=== PATIENT | female | born 1985 | race Caucasian/White ===

== ENCOUNTER 2017-10-21 07:33 | Emergency (ER) | payer SELFPAY ==
[~2017-10-21] VITALS: Ht 162.6 cm; Wt 100.0 kg
[2017-10-21 07:37] VITALS: Ht 162.6 cm; Wt 100.0 kg
[2017-10-21] MEDS ORDERED: DOXYCYCLINE HY100 M2 PO (08:15)
[2017-10-21 08:27] VITALS: BP 128/078
== END 2017-10-21 08:28 | disposition home or self-care (01) ==
LOC: D.ER 07:33
DX: S80.861A Insect bite (nonvenomous), right lower leg, initial encounter (principal); W57.XXXA Bitten or stung by nonvenomous insect and other nonvenomous arthropods, initial encounter; Y93.89 Activity, other specified; Y92.019 Unspecified place in single-family (private) house as the place of occurrence of the external cause; L03.115 Cellulitis of right lower limb; F17.200 Nicotine dependence, unspecified, uncomplicated

== ENCOUNTER 2018-03-07 18:38 | Emergency (ER) | payer SELFPAY ==
[~2018-03-07] VITALS: Ht 162.6 cm; Wt 87.3 kg
[~2018-03-07 18:38] MED LIST: DOXYCYCLINE HY100 M2 PO
[2018-03-07 18:44] VITALS: Ht 162.6 cm; Wt 87.3 kg
[2018-03-07] MEDS ORDERED: BACTRIM DS1 TAB PO (18:45)
[2018-03-07] MEDS ORDERED: CLEOCIN HCL300 MG PO (19:55)
[2018-03-07 20:38] VITALS: BP 116/81
== END 2018-03-07 20:38 | disposition home or self-care (01) ==
LOC: D.ER 18:38
DX: L02.415 Cutaneous abscess of right lower limb (principal); Z48.00 Encounter for change or removal of nonsurgical wound dressing; F17.200 Nicotine dependence, unspecified, uncomplicated

== ENCOUNTER 2018-10-02 10:41 | Emergency (ER) | payer MEDICAID ==
[~2018-10-02 10:41] MED LIST changes: +BACTRIM DS1 TAB PO; +CLEOCIN HCL300 MG PO
[2018-10-02 10:50] VITALS: Ht 162.6 cm
[2018-10-02 11:21] LABS: BASOPHILS 0.1 % (0-2); EOSINOPHILS 2.2 % (0-7); HEMOGLOBIN 15.5 g/dL (12-16); IMMATURE GRANULOCYTES 0.2 % (0-5); LYMPHOCYTES 16.3 % (15-50); MCH 32.6 pg (26.0-34.0); MCHC 35.2 g/dL (31.0-37.0); MCV 92.6 fL (80.0-100.0); MEAN PLATELET VOLUME 10.1 fL (7.4-10.4); MONOCYTES 4.7 % (2-11); NEUTROPHILS 76.5 % (40-80); PLATELET COUNT 244 10x3/uL (130-400); RBC 4.75 10x6/uL (4.00-5.40); RDW 13.4 % (11.5-14.5); WBC 13.9 10x3/uL (4.8-10.8)
[2018-10-02 11:44] LABS: ALBUMIN 3.3 g/dL (3.4-5.0); ANION GAP 8.7 mmol/L (8-16); BILIRUBIN - TOTAL 0.51 mg/dL (0.2-1.3); CALCIUM 9.1 mg/dL (8.5-10.1); CARBON DIOXIDE 28.2 mmol/L (21.0-32.0); POTASSIUM - SERUM 4.9 mmol/L (3.5-5.1); PROTEIN - SERUM 6.8 g/dL (6.4-8.2)
[2018-10-02] MEDS ORDERED: CYCLOBENZAPRINE10 MG PO (12:25)
[2018-10-02] MEDS ORDERED: EC-NAPROSYN500 MG PO (12:25)
[2018-10-02 12:51] VITALS: BP 125/74
== END 2018-10-02 12:51 | disposition home or self-care (01) ==
LOC: D.ER 10:41
PROVIDERS: Family Medicine
DX: S29.012A Strain of muscle and tendon of back wall of thorax, initial encounter (principal); X58.XXXA Exposure to other specified factors, initial encounter; Y93.89 Activity, other specified; Y92.019 Unspecified place in single-family (private) house as the place of occurrence of the external cause; M62.838 Other muscle spasm

== ENCOUNTER 2019-09-25 07:37 | Emergency (ER) | payer MEDICAID ==
[~2019-09-25] VITALS: Ht 162.6 cm; Wt 80.5 kg
[~2019-09-25 07:37] MED LIST changes: +CYCLOBENZAPRINE10 MG PO; +EC-NAPROSYN500 MG PO
[2019-09-25 07:44] VITALS: Ht 162.6 cm; Wt 80.5 kg
[2019-09-25] MEDS ORDERED: NAPROSYN500 MG PO (08:30)
[2019-09-25] MEDS ORDERED: LEVOFLOXACIN500 MG PO (08:30)
[2019-09-25 09:09] VITALS: BP 112/73
== END 2019-09-25 09:10 | disposition home or self-care (01) ==
LOC: D.ER 07:37
DX: S91.331A Puncture wound without foreign body, right foot, initial encounter (principal); W22.8XXA Striking against or struck by other objects, initial encounter; Y93.9 Activity, unspecified; Y92.9 Unspecified place or not applicable

== ENCOUNTER 2019-10-26 08:54 | Emergency (ER) | payer MEDICAID ==
[~2019-10-26] VITALS: Ht 162.6 cm; Wt 78.2 kg
[~2019-10-26 08:54] MED LIST changes: +LEVOFLOXACIN500 MG PO; +NAPROSYN500 MG PO
[2019-10-26 09:07] VITALS: Ht 162.6 cm; Wt 78.2 kg
[2019-10-26 09:29] LABS: BASOPHILS 0.1 % (0-2); HEMATOCRIT 47.3 % (36.0-48.0); IMMATURE GRANULOCYTES 0.1 % (0-5); LYMPHOCYTES 14.8 % (15-50); MCH 31.6 pg (26.0-34.0); MCHC 33.8 g/dL (31.0-37.0); MCV 93.5 fL (80.0-100.0); MEAN PLATELET VOLUME 10.2 fL (7.4-10.4); MONOCYTES 5.4 % (2-11); NEUTROPHILS 77.6 % (40-80); PLATELET COUNT 240 10x3/uL (130-400); RBC 5.06 10x6/uL (4.00-5.40); RDW 13.5 % (11.5-14.5); WBC 13.9 10x3/uL (4.8-10.8)
[2019-10-26 09:43] LABS: HCG SERUM NEGATIVE (NEGATIVE)
[2019-10-26 09:46] LABS: CALC OSMOLALITY 277 mosm/kg (275-300); CALCIUM 9.3 mg/dL (8.5-10.1); CARBON DIOXIDE 24.7 mmol/L (21.0-32.0); CHLORIDE - SERUM 105 mmol/L (98-107); GLUCOSE 106 mg/dL (74-106); POTASSIUM - SERUM 4.4 mmol/L (3.5-5.1); SODIUM 139 mmol/L (136-145); UREA NITROGEN 13 mg/dL (7-18); eGFR NON AFRICAN AMERICAN 67 mL/min (90-120)
[2019-10-26 09:55] LABS: ALKALINE PHOSPHATASE 105 U/L (30-120); ALT (SGPT) 25 U/L (10-68); AMYLASE - SERUM 78 U/L (25-115); LIPASE 104 U/L (73-393); PROTEIN - SERUM 7.2 g/dL (6.4-8.2); TROPONIN-I < 0.017 ng/mL (0.000-0.060)
[2019-10-26 10:18] LABS: BILIRUBIN NEGATIVE (NEGATIVE); KETONE NEGATIVE (NEGATIVE); NITRITE NEGATIVE (NEGATIVE)
[2019-10-26 10:19] LABS: BACTERIA MANY /HPF (NONE SEEN); WHITE CELLS - URINE 0-5 HPF (0-4)
[2019-10-26] MEDS ORDERED: FLAGYL500 MG PO (11:47)
[2019-10-26] MEDS ORDERED: PROTONIX40 MG PO (11:47)
[2019-10-26] MEDS ORDERED: STERAPRED DS 1010 MG PO (11:47)
[2019-10-26 11:58] VITALS: BP 112/79
== END 2019-10-26 11:59 | disposition home or self-care (01) ==
LOC: D.ER 08:54
PROVIDERS: Family Medicine
DX: R10.10 Upper abdominal pain, unspecified (principal); N76.0 Acute vaginitis; M54.12 Radiculopathy, cervical region; K29.70 Gastritis, unspecified, without bleeding; R11.0 Nausea

== ENCOUNTER 2020-05-25 11:08 | Inpatient (IN) | payer MEDICAID ==
[~2020-05-25] VITALS: Ht 162.6 cm; Wt 79.4 kg
[~2020-05-25 11:08] MED LIST changes: +FLAGYL500 MG PO; +PROTONIX40 MG PO; +STERAPRED DS 1010 MG PO
[2020-05-25 12:16] LABS: HCG URINE NEGATIVE (NEGATIVE)
[2020-05-25 12:18] LABS: BASOPHILS 0.2 % (0-2); HEMATOCRIT 52.3 % (36.0-48.0); HEMOGLOBIN 17.4 g/dL (12-16); IMMATURE GRANULOCYTES 0.2 % (0-5); LYMPHOCYTE ABS# 2.67 10x3/uL (1.18-3.74); MCH 31.6 pg (26.0-34.0); MCHC 33.3 g/dL (31.0-37.0); MCV 94.9 fL (80.0-100.0); MEAN PLATELET VOLUME 10.7 fL (7.4-10.4); MONOCYTES 4.8 % (2-11); NEUTROPHIL ABS# 9.12 10x3/uL (1.56-6.13); NEUTROPHILS 71.8 % (40-80); RBC 5.51 10x6/uL (4.00-5.40); RDW 13.9 % (11.5-14.5); WBC 12.7 10x3/uL (4.8-10.8)
[2020-05-25 12:19] LABS: PLATELET COUNT 301 10x3/uL (130-400)
[2020-05-25 12:22] LABS: CALC OSMOLALITY 277 mosm/kg (275-300); CALCIUM 9.9 mg/dL (8.5-10.1); CARBON DIOXIDE 27.3 mmol/L (21.0-32.0); CHLORIDE - SERUM 105 mmol/L (98-107); GLUCOSE 97 mg/dL (74-106); POTASSIUM - SERUM 4.4 mmol/L (3.5-5.1); SODIUM 140 mmol/L (136-145); UREA NITROGEN 11 mg/dL (7-18); eGFR NON AFRICAN AMERICAN 66 mL/min (90-120)
[2020-05-25 12:25] LABS: BILIRUBIN NEGATIVE (NEGATIVE); KETONE NEGATIVE (NEGATIVE); NITRITE NEGATIVE (NEGATIVE); UROBILINOGEN NORMAL mg/dL (< 2)
[2020-05-25 12:26] LABS: AMORPHOUS SEDIMENT OCC LPF (NONE SEEN); BACTERIA MODERATE HPF (NONE SEEN)
[2020-05-25 12:31] LABS: ALBUMIN 4.2 g/dL (3.4-5.0); ALKALINE PHOSPHATASE 110 U/L (30-120); ALT (SGPT) 22 U/L (10-68); AMYLASE - SERUM 112 U/L (25-115); BILIRUBIN - TOTAL 0.47 mg/dL (0.2-1.3); LIPASE 227 U/L (73-393); PROTEIN - SERUM 7.9 g/dL (6.4-8.2); TROPONIN-I < 0.017 ng/mL (0.000-0.060)
[2020-05-25 14:01] LABS: INFLUENZA TYPE A NEGATIVE (NEGATIVE); INFLUENZA TYPE B NEGATIVE (NEGATIVE); SARS-CoV-2 ANTIGEN NEGATIVE- SARS-COV-2 (NEGATIVE)
[2020-05-25 15:08] LABS: UDS - AMPHET NEGATIVE QUAL (NEGATIVE); UDS - BARB NEGATIVE QUAL (NEGATIVE); UDS - BENZO NEGATIVE QUAL (NEGATIVE); UDS - COCAINE NEGATIVE QUAL (NEGATIVE); UDS - OPIATE NEGATIVE QUAL (NEGATIVE); UDS - PCP NEGATIVE QUAL (NEGATIVE); UDS - THC POSITIVE QUAL (NEGATIVE)
--- NOTE | 2020-05-25 18:30 | NUR ---
arrives to unit per w/c, iv of ns infusing to rfa, denies pain, states that earlier pain was in her upper abd, cont to monitor
--- NOTE | 2020-05-25 20:16 | NUR ---
PATIENT VERY UPSET AND TALKING LOUDLY STATING SHE WANTS A CIGARRET OR SHES LEAVING. INFORMED PATIENT OF NO SMOKING POLICY AND WE COULD CALL DR FOR NICOTINE PATCH. 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 EXPLAINED RULES FOR NON SMOKING. PATIENT CONTINUES TO BE UPSET STATING SHE IS LEAVING. WHEN ASKED IF SHE WAS INDEED LEAVING SHE STATES "I DONT KNOW YET, I WILL LET YOU KNOW".
[2020-05-25 20:36] VITALS: Ht 162.6 cm; Wt 79.4 kg
[2020-05-25 22:27] VITALS: BP 120/71
[2020-05-26 05:32] LABS: BASOPHILS 0.1 % (0-2); EOSINOPHILS 2.4 % (0-7); IMMATURE GRANULOCYTES 0.3 % (0-5); LYMPHOCYTE ABS# 3.56 10x3/uL (1.18-3.74); LYMPHOCYTES 31.8 % (15-50); MCH 31.2 pg (26.0-34.0); MCHC 32.8 g/dL (31.0-37.0); MCV 95.1 fL (80.0-100.0); MEAN PLATELET VOLUME 10.5 fL (7.4-10.4); MONOCYTES 6.8 % (2-11); NEUTROPHIL ABS# 6.58 10x3/uL (1.56-6.13); NEUTROPHILS 58.6 % (40-80); RDW 13.9 % (11.5-14.5); WBC 11.2 10x3/uL (4.8-10.8)
[2020-05-26 05:38] LABS: CALC OSMOLALITY 282 mosm/kg (275-300); CALCIUM 8.2 mg/dL (8.5-10.1); CARBON DIOXIDE 23.3 mmol/L (21.0-32.0); CHLORIDE - SERUM 111 mmol/L (98-107); CREATININE - SERUM 0.9 mg/dL (0.6-1.3); GLUCOSE 97 mg/dL (74-106); POTASSIUM - SERUM 3.9 mmol/L (3.5-5.1); SODIUM 142 mmol/L (136-145); UREA NITROGEN 13 mg/dL (7-18); eGFR NON AFRICAN AMERICAN 75 mL/min (90-120)
[2020-05-26 05:42] LABS: HEMATOCRIT 40.9 % (36.0-48.0); HEMOGLOBIN 13.4 g/dL (12-16); PLATELET COUNT 240 10x3/uL (130-400)
[2020-05-26 06:42] VITALS: BP 153/74
--- NOTE | 2020-05-26 08:25 | NUR ---
PT SHORT WITH LABORER RAGS THIS AM, STATES WHEN CAN I GO HOME, ASK PT ABOUT HER ABD PAIN, SHE STATES I NEVER HAD ANY PAIN MY BOSS MADE ME COME UP HERE CAUSE I CALLED IN, HUFFING AND TALKING TO HERSELF ABOUT GOING HOME AND WANTING TO SMOKE
[2020-05-26 09:47] VITALS: BP 148/80
[2020-05-26] MEDS ORDERED: LEVAQUIN750 MG PO (10:33)
[2020-05-26] MEDS ORDERED: FLAGYL500 MG PO ×2 (10:33→10:40)
--- NOTE | 2020-05-26 11:33 | NUR ---
IV REMOVED, TIP INTACT, REVIEWED DC ORDERS, VOICED NO CONCERNS, WALKED FROM UNIT
--- NOTE | 2020-05-26 12:06 | MORECARE ---
CASE MANAGEMENT DISCHARGE SUMMARY PATIENT: TYRA HARRELL UNIT: [id number] ADM DATE: 05/25/20 AGE: 35 : 83 SEX: F ROOM/BED: D.2207 AUTHOR: REE BAXTER PHYSICIAN: REFERRING PHYSICIAN: ABEBA HOLLOWAY MD DATE OF SERVICE: 05/26/20 Case Management Discharge Planning Summary COMMENTS ENTERED DATE: 05/26/20 12:03 CT COMMENT TYPE: Discharge Planning REVIEWER: Zheng Mrury CM met with patient to complete DC plan and to evaluate needs. Patient lives independently at home with her significant other, Beau Grayson (phone number unavailable at this time). Patient stated that her home is safe and has electricity and running water. Patient stated that the home has 3 steps to enter and she is able to manage the steps without difficulty. Patient stated that she has no problems paying for medications and she fills her medications at [facility] [address]. Patient stated that she does not have a primary care physician. At discharge, the patient plans to return home and feels this is a safe discharge. CM discussed availability of home health, rehab services, and medical equipment. Patient declined HHS, SNF, IPR, and DME. Patient voiced no other needs at this time and is satisfied with DC plan. Transportation provider at discharge will be with Beau. CM will continue to follow and will assist as needed with dc plans/needs. [facility] REVIEW SUMMARY ANTICIPATED D/C DATE: 05/26/2020 EXPECTED LOS : 1 CASE STATUS: DCP Initiated INITIAL REVIEW: 05/25/2020 INITIAL REVIEWER: Zheng Murry FINAL DISCHARGE DISPOSITION: : FINAL REVIEWER: FINAL REVIEW DATE: [facility] Focus Questions & Answers MEP Evaluation QUESTION: ANSWER Patient gives permission to discuss discharge plans with: (name, relationship and number) : significant other, Beau Grayson (phone number unavailable at this time) Patient's ability to cope with chronic illness : d. No chronic illness Patient's current cognitive status: : *Oriented to person, place, situation, time and present Family / Caregiver's ability to cope with chronic illness: : a. Adequate (ability to meet patient's medical needs, ensures patient attends medical appts.) Patient and/or caregiver agree upon recommended discharge plan? : Yes Physical Status: : Independent with ADL's Family / Caregiver's ability to cope with chronic illness: : a. Adequate (ability to meet patient's medical needs, ensures patient attends medical appts.) Functional screen assessment: : Basic needs can adequately be met by self Does the patient have the ability to pay for or attain post discharge needs / services? : Yes Living Arrangements: : Home with Spouse/Significant Other Is there a likelihood that the patient will require additional services to return to the preadmission environment? : No Equipment needed for post hospitalization: : None Baseline cognitive status: : *Oriented to person, place, situation, time and present Patient with capacity for self-care or can be cared for in same environment as prior to hospitalization? : Yes Physical environment modification needed / anticipated for discharge: : No Medication Management: : Patient states can afford medications Medication Management: : Patient states can read and understand medication labels Pharmacy name(s): : [facility] [address] Does Patient have transportation to get home and to follow-up medical appointments when discharged from the hospital? : Yes Would patient like to participate in any Care Coordination programs (if applicable): : Not applicable Does the patient have electricity at home? : Yes Does the patient have running water in their house? : Yes Equipment in use: : None Mental health screen: : No mental health history DCP Re-evaluation QUESTION: ANSWER Would patient like to participate in any Care Coordination programs (if applicable): : Not applicable PATIENT: TYRA HARRELL ENCOUNTER: [id number] MEDICAL RECORD#: [id number] ADMISSION DATE: 05/25/2020 DISCHARGE DATE: 05/26/2020 ATTENDING MD: ABEBA GILES : AGE: 35 MARITAL STATUS: S DC PLAN ID: [id number] FACILITY: [facility] PRINTED ON: 05/26/20 12:06 CT All edits/amendments must be made on the electronic document DICTATION DATE: 05/26/20 1206 RIDE ATTENDANT: ДМИТРИЙ 05/26/20 1206 RPT#: [id number] DC DATE:05/26/20 STATUS: DIS IN [facility] [address] [place] [address] END OF REPORT
--- NOTE | 2020-05-26 13:24 | MORECARE ---
CASE MANAGEMENT DISCHARGE SUMMARY PATIENT: TYRA HARRELL UNIT: [id number] ADM DATE: 05/25/20 AGE: 35 : 83 SEX: F ROOM/BED: D.2207 AUTHOR: REE BAXTER PHYSICIAN: REFERRING PHYSICIAN: ABEBA HOLLOWAY MD DATE OF SERVICE: 05/26/20 Case Management Discharge Planning Summary COMMENTS ENTERED DATE: 05/26/20 12:03 CT COMMENT TYPE: Discharge Planning REVIEWER: Zheng Murry CM met with patient to complete DC plan and to evaluate needs. Patient lives independently at home with her significant other, Beau Grayson (phone number unavailable at this time). Patient stated that her home is safe and has electricity and running water. Patient stated that the home has 3 steps to enter and she is able to manage the steps without difficulty. Patient stated that she has no problems paying for medications and she fills her medications at [facility] on [address]. Patient stated that she does not have a primary care physician. At discharge, the patient plans to return home and feels this is a safe discharge. CM discussed availability of home health, rehab services, and medical equipment. Patient declined HHS, SNF, IPR, and DME. Patient voiced no other needs at this time and is satisfied with DC plan. Transportation provider at discharge will be with Beau. CM will continue to follow and will assist as needed with dc plans/needs. [facility] REVIEW SUMMARY ANTICIPATED D/C DATE: 05/26/2020 EXPECTED LOS : 1 CASE STATUS: DCP Initiated INITIAL REVIEW: 05/25/2020 INITIAL REVIEWER: Zheng Murry FINAL DISCHARGE DISPOSITION: : FINAL REVIEWER: FINAL REVIEW DATE: [facility] Focus Questions & Answers NDP Evaluation QUESTION: ANSWER Patient gives permission to discuss discharge plans with: (name, relationship and number) : significant other, Beau Grayson (phone number unavailable at this time) Patient's ability to cope with chronic illness : d. No chronic illness Patient's current cognitive status: : *Oriented to person, place, situation, time and present Family / Caregiver's ability to cope with chronic illness: : a. Adequate (ability to meet patient's medical needs, ensures patient attends medical appts.) Patient and/or caregiver agree upon recommended discharge plan? : Yes Physical Status: : Independent with ADL's Family / Caregiver's ability to cope with chronic illness: : a. Adequate (ability to meet patient's medical needs, ensures patient attends medical appts.) Functional screen assessment: : Basic needs can adequately be met by self Does the patient have the ability to pay for or attain post discharge needs / services? : Yes Living Arrangements: : Home with Spouse/Significant Other Is there a likelihood that the patient will require additional services to return to the preadmission environment? : No Equipment needed for post hospitalization: : None Baseline cognitive status: : *Oriented to person, place, situation, time and present Patient with capacity for self-care or can be cared for in same environment as prior to hospitalization? : Yes Physical environment modification needed / anticipated for discharge: : No Medication Management: : Patient states can afford medications Medication Management: : Patient states can read and understand medication labels Pharmacy name(s): : [facility] [address] Does Patient have transportation to get home and to follow-up medical appointments when discharged from the hospital? : Yes Would patient like to participate in any Care Coordination programs (if applicable): : Not applicable Does the patient have electricity at home? : Yes Does the patient have running water in their house? : Yes Equipment in use: : None Mental health screen: : No mental health history DCP Re-evaluation QUESTION: ANSWER Would patient like to participate in any Care Coordination programs (if applicable): : Not applicable PATIENT: TYRA HARRELL ENCOUNTER: [id number] MEDICAL RECORD#: [id number] ADMISSION DATE: 05/25/2020 DISCHARGE DATE: 05/26/2020 ATTENDING MD: ABEBA GILES : AGE: 35 MARITAL STATUS: S DC PLAN ID: [id number] FACILITY: [facility] PRINTED ON: 05/26/20 13:24 CT All edits/amendments must be made on the electronic document DICTATION DATE: 05/26/20 1324 CREDIT BALANCE SPECIALIST: ДМИТРИЙ 05/26/20 1324 RPT#: [id number] DC DATE:05/26/20 STATUS: DIS IN [facility] [address] [place] [address] END OF REPORT
== END 2020-05-26 11:34 | disposition home or self-care (01) | DRG 392 ==
LOC: D.ER 11:08 → D.MS 17:41
PROVIDERS: Family Medicine; ADMIT Family Medicine; ATTEND Family Medicine
DX: K52.9 Noninfective gastroenteritis and colitis, unspecified (principal); N39.0 Urinary tract infection, site not specified; F17.203 Nicotine dependence unspecified, with withdrawal; E86.0 Dehydration